=== PATIENT | male | born 1950 | race Caucasian/White ===

== ENCOUNTER 2021-03-30 04:14 | Emergency (ER) | payer OTHER ==
[~2021-03-30] VITALS: Ht 167.6 cm; Wt 80.7 kg
[2021-03-30] MEDS ORDERED: BENAZEPRIL HCL20 MG (04:34)
[2021-03-30] MEDS ORDERED: SIMVASTATIN80 MG (04:34)
[2021-03-30] MEDS ORDERED: CEFDINIR300 MG PO (06:56)
[2021-03-30] MEDS ORDERED: NAPROXEN375 MG PO (06:56)
== END 2021-03-30 07:34 | disposition home or self-care (01) ==
LOC: ER 04:14
DX: S01.121A Laceration with foreign body of right eyelid and periocular area, initial encounter (principal); S01.22XA Laceration with foreign body of nose, initial encounter; W06.XXXA Fall from bed, initial encounter; Y93.89 Activity, other specified; Y92.032 Bedroom in apartment as the place of occurrence of the external cause; Y99.8 Other external cause status